=== PATIENT | male | born 1985 | race Caucasian/White ===

== ENCOUNTER → 2016-07-12 | Outpatient (REF) | payer OTHER ==
[2016-07-12 11:43] LABS: ALBUMIN 4.6 GM/DL (3.2-5.2); ALBUMIN/GLOBULIN RATIO 1.48 (1.00-1.93); ALKALINE PHOSPHATASE 104 U/L (45-117); ALT/SGPT 70 U/L (12-78); ANION GAP 8 MEQ/L (8-16); AST/SGOT 26 U/L (15-37); BILIRUBIN,TOTAL 0.5 MG/DL (0.2-1.0); BLOOD UREA NITROGEN 17 MG/DL (7-18); CALCIUM LEVEL 9.6 MG/DL (8.5-10.1); CARBON DIOXIDE LEVEL 28 MEQ/L (21-32); CHLORIDE LEVEL 106 MEQ/L (98-107); CHOLESTEROL LEVEL 282 MG/DL (<200); CREATININE FOR GFR 1.05 MG/DL (0.70-1.30); GLOMERULAR FILTRATION RATE > 60.0 (>60); GLUCOSE, FASTING 112 MG/DL (70-105); POTASSIUM SERUM 4.1 MEQ/L (3.5-5.1); SODIUM LEVEL 142 MEQ/L (136-145); TOTAL PROTEIN 7.7 GM/DL (6.4-8.2); TRIGLYCERIDES LEVEL 227 MG/DL (<150)
== END ==
LOC: M SFHCCLAY 09:00
PROVIDERS: ATTEND Family Medicine
DX: E78.2 Mixed hyperlipidemia (principal)

== ENCOUNTER → 2017-02-21 | Outpatient (REF) | payer OTHER ==
[2017-02-21 19:15] LABS: ALBUMIN 4.3 GM/DL (3.2-5.2); ALBUMIN/GLOBULIN RATIO 1.39 (1.00-1.93); ALKALINE PHOSPHATASE 99 U/L (45-117); ALT/SGPT 59 U/L (12-78); ANION GAP 4 MEQ/L (8-16); AST/SGOT 20 U/L (15-37); BILIRUBIN,TOTAL 0.5 MG/DL (0.2-1.0); BLOOD UREA NITROGEN 15 MG/DL (7-18); CALCIUM LEVEL 9.3 MG/DL (8.5-10.1); CARBON DIOXIDE LEVEL 32 MEQ/L (21-32); CHLORIDE LEVEL 104 MEQ/L (98-107); CHOLESTEROL LEVEL 280 MG/DL (<200); CREATININE FOR GFR 1.06 MG/DL (0.70-1.30); GLOMERULAR FILTRATION RATE > 60.0 (>60); GLUCOSE, FASTING 103 MG/DL (70-105); POTASSIUM SERUM 4.1 MEQ/L (3.5-5.1); SODIUM LEVEL 140 MEQ/L (136-145); TOTAL PROTEIN 7.4 GM/DL (6.4-8.2); TRIGLYCERIDES LEVEL 189 MG/DL (<150)
== END ==
LOC: M SFHCCLAY 09:41
PROVIDERS: ATTEND Family Medicine
DX: E78.2 Mixed hyperlipidemia (principal)

== ENCOUNTER → 2017-05-24 | Outpatient (CLI) | payer OTHER ==
--- NOTE | 2017-05-25 07:59 | REP ---
Left foot four views: There are findings at the fourth digit TM T articulation compatible with osteoarthritis versus compression fracture. There is superimposition on almost all images and the area is not optimally demonstrated on this plain film study. Correlation with clinical point tenderness is recommended. No other fracture is identified. No radiopaque foreign body. Mineralization joint spaces otherwise are unremarkable. I suspect there is soft tissue edema along the plantar surface in the location of the MTP articulations. This should be confirmed clinically. Impression: Questionable fracture versus osteoarthritis at the fourth digit TMT articulation. Signed by Hernan Hedrick MD 05/25/2017 07:51 A
== END ==
LOC: M CLY 11:50
PROVIDERS: ATTEND Nurse Practitioner Family
DX: S99.922A Unspecified injury of left foot, initial encounter (principal); X58.XXXA Exposure to other specified factors, initial encounter; Y92.89 Other specified places as the place of occurrence of the external cause; Y93.89 Activity, other specified; Y99.8 Other external cause status; R93.7 Abnormal findings on diagnostic imaging of other parts of musculoskeletal system

== ENCOUNTER → 2018-10-23 | Outpatient (CLI) | payer OTHER ==
--- NOTE | 2018-10-24 01:33 | REP ---
Clinical: Trauma. Technique: AP, lateral, bilateral oblique views right foot . Findings: The osseous structures and joint spaces are intact and normal. There is no evidence for acute fracture or dislocation. Surrounding soft tissues are unremarkable. No subcutaneous emphysema or radiodense foreign body. Impression: Normal right foot series. No acute fracture or dislocation.
== END ==
LOC: M CLY 12:12
PROVIDERS: ATTEND Nurse Practitioner Family
DX: S99.921A Unspecified injury of right foot, initial encounter (principal); X58.XXXA Exposure to other specified factors, initial encounter; Y92.89 Other specified places as the place of occurrence of the external cause

== ENCOUNTER → 2019-05-21 | Outpatient (REF) | payer OTHER ==
[2019-05-21 11:53] LABS: HEMATOCRIT 43.2 % (42.0-52.0); HEMOGLOBIN 14.5 g/dl (13.5-17.5); MEAN CORPUSCULAR HEMOGLOBIN 29.1 pg (27.0-33.0); MEAN CORPUSCULAR HGB CONC 33.6 g/dl (32.0-36.5); MEAN CORPUSCULAR VOLUME 86.6 fl (80.0-96.0); PLATELET COUNT, AUTOMATED 250 10^3/uL (150-450); RED BLOOD COUNT 4.99 10^6/uL (4.30-6.10); WHITE BLOOD COUNT 5.3 10^3/uL (4.0-10.0)
[2019-05-21 12:03] LABS: ALBUMIN 4.5 GM/DL (3.2-5.2); ALT/SGPT 98 U/L (12-78); BILIRUBIN,TOTAL 0.4 MG/DL (0.2-1.0); BLOOD UREA NITROGEN 18 MG/DL (7-18); CALCIUM LEVEL 9.5 MG/DL (8.5-10.1); CARBON DIOXIDE LEVEL 31 MEQ/L (21-32); CHLORIDE LEVEL 107 MEQ/L (98-107); CHOLESTEROL LEVEL 326 MG/DL (<200); CHOLESTEROL RISK RATIO 9.588 (<5); CREATININE FOR GFR 1.05 MG/DL (0.70-1.30); GLOMERULAR FILTRATION RATE > 60.0 (>60); GLUCOSE, FASTING 112 MG/DL (70-100); HDL CHOLESTEROL 34 MG/DL (>40); NON-HDL-C 292 MG/DL; POTASSIUM SERUM 4.5 MEQ/L (3.5-5.1); SODIUM LEVEL 142 MEQ/L (136-145); TOTAL PROTEIN 7.5 GM/DL (6.4-8.2); TRIGLYCERIDES LEVEL 676 MG/DL (<150)
[2019-05-21 12:07] LABS: TOTAL 25(OH) VITAMIN D 14.9 NG/ML (30.0-100.0)
== END ==
LOC: M SFHCCLAY 08:28
PROVIDERS: ATTEND Nurse Practitioner Family
DX: Z13.21 Encounter for screening for nutritional disorder (principal); E78.2 Mixed hyperlipidemia; E78.5 Hyperlipidemia, unspecified; G47.30 Sleep apnea, unspecified

== ENCOUNTER → 2019-08-19 | Outpatient (REF) | payer OTHER ==
[2019-08-19 11:42] LABS: ALBUMIN 4.3 GM/DL (3.2-5.2); ALT/SGPT 111 U/L (12-78); BILIRUBIN,DIRECT 0.1 MG/DL (0.0-0.2); BILIRUBIN,TOTAL 0.6 MG/DL (0.2-1.0); CHOLESTEROL LEVEL 263 MG/DL (<200); CHOLESTEROL RISK RATIO 9.392 (<5); HDL CHOLESTEROL 28 MG/DL (>40); NON-HDL-C 235 MG/DL; TOTAL PROTEIN 7.3 GM/DL (6.4-8.2); TRIGLYCERIDES LEVEL 567 MG/DL (<150)
[2019-08-19 11:50] LABS: TOTAL 25(OH) VITAMIN D 23.1 NG/ML (30.0-100.0)
== END ==
LOC: M SFHCCLAY 08:28
PROVIDERS: ATTEND Nurse Practitioner Family
DX: E78.5 Hyperlipidemia, unspecified (principal); E55.9 Vitamin D deficiency, unspecified

== ENCOUNTER → 2020-03-31 | Outpatient (REF) | payer BC, OTHER ==
[2020-03-31 13:01] LABS: ALBUMIN 4.5 GM/DL (3.2-5.2); ALT/SGPT 96 U/L (12-78); BILIRUBIN,DIRECT 0.1 MG/DL (0.0-0.2); BILIRUBIN,TOTAL 0.6 MG/DL (0.2-1.0); CHOLESTEROL LEVEL 243 MG/DL (<200); CHOLESTEROL RISK RATIO 5.785 (<5); HDL CHOLESTEROL 42 MG/DL (>40); LDL CHOLESTEROL 169 MG/DL (<100); NON-HDL-C 201 MG/DL; TOTAL PROTEIN 7.9 GM/DL (6.4-8.2); TRIGLYCERIDES LEVEL 162 MG/DL (<150)
[2020-03-31 13:05] LABS: TOTAL 25(OH) VITAMIN D 46.1 NG/ML (30.0-100.0)
[2020-04-01 08:58] LABS: HEPATITIS B SURFACE ANTIGEN NEGATIVE (NEGATIVE)
[2020-04-01 09:24] LABS: HEPATITIS B CORE ANTIBODY IGM NEGATIVE (NEGATIVE); HEPATITIS C VIRUS ABY INDEX 0.1 INDEX (<0.8)
[2020-04-01 09:28] LABS: HEPATITIS A ANTIBODY IGM NEGATIVE (NEGATIVE)
== END ==
LOC: M SFHCCLAY 08:25
PROVIDERS: ATTEND Nurse Practitioner Family
DX: E78.5 Hyperlipidemia, unspecified (principal); E55.9 Vitamin D deficiency, unspecified

== ENCOUNTER → 2020-04-01 | Outpatient (REF) | payer BC | LOC: M SFHCCLAY 08:07 | PROVIDERS: ATTEND Nurse Practitioner Family | DX: R94.5 Abnormal results of liver function studies (principal) ==

== ENCOUNTER → 2020-04-07 | Outpatient (CLI) | payer BC ==
--- NOTE | 2020-04-08 11:47 | REP ---
INDICATION: ABNORMAL LFT'S COMPARISON: None. TECHNIQUE: Real time osborne scale ultrasound examination using curved array transducer. FINDINGS: Liver demonstrates mildly increased echotexture suggesting fatty infiltration. No focal hepatic lesion identified. Focal fatty sparing noted adjacent to the gallbladder fossa. The pancreas is incompletely evaluated but visualized portions appear normal. The gallbladder is normal and without gallstones, wall thickening, or pericholecystic fluid. No biliary ductal dilatation is appreciated and the common bile duct measures 2.7 mm diameter. Right kidney is normal in reniform shape in appearance without hydronephrosis, and measures 12.3 x 4.7 x 4.5 cm. No ascites identified in the right upper quadrant. IMPRESSION: Hepatosteatosis. <Electronically signed by Brendon Rodriguez > 04/08/20 [id number]
== END ==
LOC: M RAD 08:39
PROVIDERS: ATTEND Nurse Practitioner Family
DX: R94.5 Abnormal results of liver function studies (principal)

== ENCOUNTER → 2020-05-14 | Outpatient (REF) | payer BC ==
[2020-05-14 11:53] LABS: BASO % 0.7 % (0.0-1.0); EOS # 0.2 10^3/uL (0.0-0.5); EOS % 3.3 % (0.0-3.0); HEMATOCRIT 44.5 % (42.0-52.0); HEMOGLOBIN 14.7 g/dl (13.5-17.5); LYMPH % 22.3 % (24.0-44.0); MEAN CORPUSCULAR HEMOGLOBIN 28.6 pg (27.0-33.0); MEAN CORPUSCULAR VOLUME 86.6 fl (80.0-96.0); MONO # 0.7 10^3/uL (0.0-0.8); MONO % 16.2 % (0.0-5.0); NEUTROPHILS # 2.6 10^3/uL (1.5-8.5); NEUTROPHILS % 57.1 % (36.0-66.0); PLATELET COUNT, AUTOMATED 238 10^3/uL (150-450); RED BLOOD COUNT 5.14 10^6/uL (4.30-6.10); WHITE BLOOD COUNT 4.5 10^3/uL (4.0-10.0)
[2020-05-14 12:25] LABS: C REACTIVE PROTEIN QUANTITATIV < 0.30 MG/DL (0.00-0.30); RHEUMATOID FACTOR QUANT < 10.0 IU/ML (<15.0); URIC ACID 9.5 MG/DL (3.5-7.2)
[2020-05-14 12:35] LABS: ERYTHROCYTE SEDIMENTATION RATE 3 mm/hr (0-15)
[2020-05-15 16:07] LABS: ANTINUCLEAR ANTIBODIES DIRECT Negative (Negative); Lyme Disease IgG/IgM Antibodie <0.91 ISR (0.00-0.90); Lyme Disease IgM Ab Quantitati <0.80 index (0.00-0.79)
== END ==
LOC: M LABDRAWC 11:09
PROVIDERS: ATTEND Physician Assistant Surgical
DX: M25.572 Pain in left ankle and joints of left foot (principal)

== ENCOUNTER → 2020-07-29 | Outpatient (REF) | payer BC ==
[2020-07-29 12:31] LABS: HEMATOCRIT 45.7 % (42.0-52.0); HEMOGLOBIN 15.2 g/dl (13.5-17.5); MEAN CORPUSCULAR HGB CONC 33.3 g/dl (32.0-36.5); MEAN CORPUSCULAR VOLUME 87.2 fl (80.0-96.0); PLATELET COUNT, AUTOMATED 272 10^3/uL (150-450); RED BLOOD COUNT 5.24 10^6/uL (4.30-6.10); WHITE BLOOD COUNT 4.8 10^3/uL (4.0-10.0)
[2020-07-29 12:58] LABS: ALBUMIN 4.6 GM/DL (3.2-5.2); ALT/SGPT 131 U/L (12-78); BILIRUBIN,TOTAL 0.8 MG/DL (0.2-1.0); BLOOD UREA NITROGEN 16 MG/DL (7-18); CARBON DIOXIDE LEVEL 28 MEQ/L (21-32); CHLORIDE LEVEL 105 MEQ/L (98-107); CHOLESTEROL LEVEL 212 MG/DL (<200); CHOLESTEROL RISK RATIO 5.578 (<5); CREATININE FOR GFR 1.14 MG/DL (0.70-1.30); GLOMERULAR FILTRATION RATE > 60.0 (>60); GLUCOSE, FASTING 105 MG/DL (70-100); HDL CHOLESTEROL 38 MG/DL (>40); LDL CHOLESTEROL 138 MG/DL (<100); NON-HDL-C 174 MG/DL; POTASSIUM SERUM 4.6 MEQ/L (3.5-5.1); SODIUM LEVEL 140 MEQ/L (136-145); TOTAL PROTEIN 7.7 GM/DL (6.4-8.2); TRIGLYCERIDES LEVEL 179 MG/DL (<150)
[2020-07-29 13:06] LABS: TOTAL 25(OH) VITAMIN D 36.2 NG/ML (30.0-100.0)
== END ==
LOC: M SFHCCLAY 07:04
PROVIDERS: ATTEND Nurse Practitioner Family
DX: R94.5 Abnormal results of liver function studies (principal); E78.5 Hyperlipidemia, unspecified; R73.9 Hyperglycemia, unspecified; E55.9 Vitamin D deficiency, unspecified

== ENCOUNTER → 2020-08-30 | Outpatient (CLI) | payer BC ==
--- NOTE | 2020-08-30 19:20 | ECGEPIP ---
[facility] Test Date: 2020-08-30 Pat Name: MEEK JACOBO Department: Room: - Gender: Male [employer]: rf : 1985 Requested By: Janak Garcia Order Number: [id number] Reading MD: Duncan Shoemaker Measurements Intervals Wray Rate: 61 P: 39 WI: 134 QRS: 39 QRSD: 98 T: 38 QT: 398 QTc: 400 Interpretive Statements Normal sinus rhythm Incomplete right bundle branch block Comparison tracing not on file Electronically Signed on 08-30-2020 19:20:08 EDT by Duncan Shoemaker
== END ==
LOC: M EKG 12:52
PROVIDERS: ATTEND Orthopaedic Surgery
DX: Z01.818 Encounter for other preprocedural examination (principal); S92.342K Displaced fracture of fourth metatarsal bone, left foot, subsequent encounter for fracture with nonunion; X58.XXXA Exposure to other specified factors, initial encounter; Y92.89 Other specified places as the place of occurrence of the external cause; Y93.89 Activity, other specified; Y99.8 Other external cause status; I45.0 Right fascicular block; R93.41 Abnormal radiologic findings on diagnostic imaging of renal pelvis, ureter, or bladder

== ENCOUNTER 2020-12-10 12:46 | Inpatient (IN) | payer BC ==
[~2020-12-10] VITALS: Ht 180.3 cm; Wt 107.5 kg
[2020-12-10] MEDS: NS 1,000 ML IV SCH ×2 (02:30→18:53)
[2020-12-10 14:50] VITALS: BP 120/78
[2020-12-10] MEDS ORDERED: KETOROLAC 30 MG/ML 1ML VIAL IV PRN (15:05)
[2020-12-10] MEDS ORDERED: MORPHINE 4 MG/ML 1ML VIAL/SYRINGE (J2270) IV PRN (15:15)
[2020-12-10] MEDS ORDERED: ATOR1TAB21 PO (16:29)
[2020-12-10] MEDS ORDERED: ERGO500029 PO (16:29)
[2020-12-10] MEDS ORDERED: ONDANSETRON 4MG/2ML VIAL IV PRN (16:30)
--- NOTE | 2020-12-10 16:31 | HPEPDOC ---
[facility] Medical History & Physical Date of Admission Dec 10, 2020 Date of Service: Dec 10, 2020 Attending Physician: KENNETH MUHAMMAD MD History and Physical CHIEF COMPLAINT: Abdominal pain, worse in LLQ HISTORY OF PRESENT ILLNESS: 35 yo M with a history of HTN and HLD not on medications, and former smoker who presented to [facility] this morning with worsening LLQ abdominal pain that begin yesterday morning but progressed into sharp LLQ that is worse with movement with poor PO and associated fevers last noted was 101.9. He denies nausea, emesis, diarrhea, melena, hematochezia or prior history of such pain before. He consumes alcohol daily but 1 glass and recently had been smoking marijuana since yesterday for this pain but otherwise does not use any other illicit drugs. At [place] he was hemodynamically stable adn has been afebrile thus far since his last acetaminophen he took at home. Investigations included a CT A/P with IV contrast that revealed severe thickening of the distal descending colon with a small pocket of air within the mesentary posteriorly without significant diverticular c/w a focal colitis with a small loculated microperforation. He had a leukocytosis to WBC 14.1, Hgb 15.4, platelets 215, na 136, K 4, Cr 1.11, glucose 106, lipase 56, lactate 0.8, ASt 16, ALT 57, alk phos 97, Tbili 2.1 and covid-19 testing was negative. He was given 2L of NS, morphine, zofran and zosyn and transferred to [facility] for focal colitis with microperforation. On arrival he does not appear uncomfortable and is asking for water. He does report that he had severe pain with movement especially with all the bumps and swaying in the ambulance on the way here. I consulted surgery and he will be seen shortly and will otherwise start him on empiric zosyn and fluids and place him on clear liquids. PAST MEDICAL HISTORY: HTN and HLD PAST SURGICAL HISTORY: Knee and foot surgery SOCIAL HISTORY: Tobacco use: prior ETOH: daily, 1 drink daily Illicit drug use: marijuana FAMILY HISTORY: Father: HTN Mother: Cancer maternal grandmother: DM ALLERGIES: Please see below. REVIEW OF SYSTEMS: 10 point ROS was completed and was negative except as noted in the HPI. HOME MEDICATIONS: Please see below. PHYSICAL EXAMINATION: VITAL SIGNS: see below GENERAL APPEARANCE: NAD, well developed, well nourished HEENT: NCAT, PERRLA, EOMI, MMM CARDIOVASCULAR: RRR, has a murmur, no JVD LUNGS: CTAB ABDOMEN: Exquisite LLQ>RLQ pain, hypoactive sounds MUSCULOSKELETAL: 5/5 strength with FROM EXTREMITIES: WWP, no LE edema NEUROLOGICAL: AOx3, clear speech, CN3-12 intact, grossly nonfocal LABORATORY DATA and IMAGING: [place] labs and imaging summarized above. MICROBIOLOGY: Please see below. ASSESSMENT: 35 yo M with a history of HTN and HLD not on medications, and former smoker who presented to [facility] this morning with worsening LLQ abdominal pain that begin yesterday morning but progressed into sharp LLQ that is worse with movement with poor PO and associated fevers now transferred to [facility] with distal focal colitis with a small loculated microperforation. PLAN: Focal descending colitis with microperforation -Surgery consulted -NPO -zosyn [id number] -morphine 4mg IV Q6HP for severe pain -acetaminophen PRn for fevers -zofran 4mg IV Q6HP -sent [place] CT disc to radiology for uploading into PACS -NS @ 125cc/hr HTN: -normotensive, monitor HLD: recently not taking his statin therapy -check lipid profile with AM labs DVT ppx: TEDs and SCDs Allergies Coded Allergies: No Known Allergies (Unverified , 06/14/20) A-FIB/CHADSVASC A-FIB History Current/History of A-Fib/PAF?: No Current PO Anticoag Therapy: No Age/Risk Factor Scoring CHADSVASC: CHADSVASC Response (Comments) Value Age Risk Factor Age < 65 years old 0 Gender Risk Factor Male 0 Hx of CHF No 0 Hx of HTN Yes 1 Hx of Stroke/TIA/or VTE No 0 Hx of Diabetes No 0 Hx of Vascular Disease No 0 Total 1 Treatment Treatment ordered: NONE Reason Anticoagulant not given: Not indicated/[id number] KENNETH MUHAMMAD MD Dec 10, 2020 16:30
[2020-12-10 17:32] LABS: HEMATOCRIT 41.9 % (42.0-52.0); HEMOGLOBIN 13.9 g/dl (13.5-17.5); MEAN CORPUSCULAR HEMOGLOBIN 29.3 pg (27.0-33.0); MEAN CORPUSCULAR HGB CONC 33.2 g/dl (32.0-36.5); MEAN CORPUSCULAR VOLUME 88.4 fl (80.0-96.0); PLATELET COUNT, AUTOMATED 182 10^3/uL (150-450); RED BLOOD COUNT 4.74 10^6/uL (4.30-6.10); WHITE BLOOD COUNT 12.5 10^3/uL (4.0-10.0)
[2020-12-10 18:00] LABS: ALBUMIN 3.7 GM/DL (3.2-5.2); ALT/SGPT 44 U/L (12-78); BILIRUBIN,TOTAL 2.1 MG/DL (0.2-1.0); BLOOD UREA NITROGEN 10 MG/DL (7-18); CALCIUM LEVEL 8.7 MG/DL (8.5-10.1); CARBON DIOXIDE LEVEL 26 MEQ/L (21-32); CHLORIDE LEVEL 103 MEQ/L (98-107); CREATININE FOR GFR 1.15 MG/DL (0.70-1.30); GLOMERULAR FILTRATION RATE > 60.0 (>60); GLUCOSE, FASTING 112 MG/DL (70-100); POTASSIUM SERUM 3.9 MEQ/L (3.5-5.1); SODIUM LEVEL 139 MEQ/L (136-145); TOTAL PROTEIN 7.1 GM/DL (6.4-8.2)
[2020-12-10] MEDS: PIPERACILLIN/TAZOBACTAM SOD 3.375 GM in D5W MINI-BAG PLUS 50 ML IV SCH (18:53)
[2020-12-10 22:00] VITALS: BP 125/63
[2020-12-10] MEDS: ACETAMINOPHEN TAB 650MG DOSE (2X325MG) PO PRN (23:23)
[2020-12-11] MEDS: PIPERACILLIN/TAZOBACTAM SOD 3.375 GM in D5W MINI-BAG PLUS 50 ML IV SCH ×5 (00:33→23:59)
[2020-12-11 06:00] VITALS: BP 127/63
[2020-12-11 06:16] LABS: HEMATOCRIT 39.6 % (42.0-52.0); HEMOGLOBIN 13.6 g/dl (13.5-17.5); MEAN CORPUSCULAR HEMOGLOBIN 30.2 pg (27.0-33.0); MEAN CORPUSCULAR HGB CONC 34.3 g/dl (32.0-36.5); MEAN CORPUSCULAR VOLUME 87.8 fl (80.0-96.0); PLATELET COUNT, AUTOMATED 196 10^3/uL (150-450); RED BLOOD COUNT 4.51 10^6/uL (4.30-6.10); WHITE BLOOD COUNT 12.5 10^3/uL (4.0-10.0)
[2020-12-11 06:39] LABS: BLOOD UREA NITROGEN 10 MG/DL (7-18); CALCIUM LEVEL 8.7 MG/DL (8.5-10.1); CARBON DIOXIDE LEVEL 25 MEQ/L (21-32); CHLORIDE LEVEL 103 MEQ/L (98-107); CREATININE FOR GFR 1.07 MG/DL (0.70-1.30); GLOMERULAR FILTRATION RATE > 60.0 (>60); GLUCOSE, FASTING 97 MG/DL (70-100); MAGNESIUM LEVEL 1.9 MG/DL (1.8-2.4); POTASSIUM SERUM 3.8 MEQ/L (3.5-5.1); SODIUM LEVEL 137 MEQ/L (136-145)
[2020-12-11] MEDS: NS 1,000 ML IV SCH ×2 (10:11→18:57)
[2020-12-11] MEDS: ACETAMINOPHEN TAB 650MG DOSE (2X325MG) PO PRN ×2 (10:11→18:59)
--- NOTE | 2020-12-11 11:12 | IPNPDOC ---
Date Seen The patient was seen on 12/11/20. Progress Note SUBJECTIVE: Patient was seen and examined at bedside. Appears nontoxic. Alert, oriented in bed talking. Since his pain is in the abdomen is improving. He denies any fevers and chills overnight. Was seen by Dr. Miles. Trialed CLD for breakfast, tolerated well. OBJECTIVE PHYSICAL EXAMINATION: VITAL SIGNS: please see below General: NAD, comfortable HEENT: PERRLA, EOMI, sclerae clear Neck: supple, normal ROM, no JVD Respiratory: lungs CTAB, no wheeze, no rales, no crackles CVS: RRR, normal S1, S2, no murmurs Abdo: pain to palpation of LLQ. Soft, no rigidity. Extremities: no edema, pulses 2+ MSK: no joint deformities, normal ROM Neuro: no focal neuro deficits, moving all 4 extremities, CN2-12 intact. Strength 5/5 in all 4 extremities. No nystagmus. Psych: calm, cooperative, AAO x 3 LABORATORY DATA, IMAGING STUDIES, MICROBIOLOGY: Please see below. DVT prophylaxis ordered?: TEDs. SCDs. ASSESSMENT AND PLAN: 35-year-old male with past medical history of hypertension, hyperlipidemia, transferred from [facility] with concern for focal ascending colitis with microperforation. Complaint of left lower quadrant abdominal pain, now improving. Being evaluated by general surgery, Dr. Mlies. Presently on Zosyn. Diet advanced to CLD by Dr. Miles. PROBLEMS: Focal descending colitis with microperforation -Surgery consulted, being followed by Dr. Miles. -diet advanced to CLD by surgery -plan to advance diet to low fiber pending improvement in pain -c/w zosyn [id number] -morphine 4mg IV Q6HP for severe pain -acetaminophen PRn for fevers -zofran 4mg IV Q6HP - will c/w NS 125 cc/hr until diet advanced further HTN: - BP normotensive - monitor and titrate HLD - not on medication - lipid panel not drawn, ordered labs for 12/12/20 DVT ppx: TEDs and SCDs VS, I&O, 24H, Fishbone Vital Signs/I&O Vital Signs Date Time Temp Pulse Resp B/P (MAP) Pulse Ox O2 Delivery O2 Flow Rate FiO2 12/11/20 06:00 98.2 92 21 127/63 (84) 96 Room Air I&O- Last 24 Hours up to 6 AM 12/11/20 06:00 Intake Total 2125 ml Output Total 200 ml Balance 1925 ml Laboratory Data 24H LABS Laboratory Tests 2 12/10/20 17:15: Nucleated Red Blood Cells % (auto) 0.0, Anion Gap 10, Glomerular Filtration Rate > 60.0, Lactic Acid Level 1.3, Calcium Level 8.7, Total Bilirubin 2.1H, Aspartate Amino Transf (AST/SGOT) 12, Alanine Aminotransferase (ALT/SGPT) 44, Alkaline Phosphatase 89, Total Protein 7.1, Albumin 3.7, Albumin/Globulin Ratio 1.1 12/11/20 06:00: Nucleated Red Blood Cells % (auto) 0.0, Anion Gap 9, Glomerular Filtration Rate > 60.0, Calcium Level 8.7, Magnesium Level 1.9 CBC/BMP Laboratory Tests 12/10/20 17:15 12/11/20 06:00 Microbiology Microbiology 12/10/20 Blood Culture, Received Pending 12/10/20 Blood Culture, Received Pending CODY ARIAS MD Dec 11, 2020 11:12
[2020-12-11 14:00] VITALS: BP 120/79
[2020-12-11 22:00] VITALS: BP 130/62
[2020-12-12 06:00] VITALS: BP 124/60
[2020-12-12] MEDS: PIPERACILLIN/TAZOBACTAM SOD 3.375 GM in D5W MINI-BAG PLUS 50 ML IV SCH ×3 (06:11→18:27)
[2020-12-12 06:33] LABS: HEMATOCRIT 39.5 % (42.0-52.0); HEMOGLOBIN 13.3 g/dl (13.5-17.5); MEAN CORPUSCULAR HEMOGLOBIN 29.3 pg (27.0-33.0); MEAN CORPUSCULAR HGB CONC 33.7 g/dl (32.0-36.5); PLATELET COUNT, AUTOMATED 198 10^3/uL (150-450); RED BLOOD COUNT 4.54 10^6/uL (4.30-6.10); WHITE BLOOD COUNT 9.9 10^3/uL (4.0-10.0)
[2020-12-12 07:05] LABS: BLOOD UREA NITROGEN 7 MG/DL (7-18); CALCIUM LEVEL 8.3 MG/DL (8.5-10.1); CARBON DIOXIDE LEVEL 24 MEQ/L (21-32); CHLORIDE LEVEL 106 MEQ/L (98-107); CHOLESTEROL LEVEL 230 MG/DL (<200); CHOLESTEROL RISK RATIO 9.583 (<5); GLOMERULAR FILTRATION RATE > 60.0 (>60); GLUCOSE, FASTING 110 MG/DL (70-100); HDL CHOLESTEROL 24 MG/DL (>40); LDL CHOLESTEROL 170 MG/DL (<100); NON-HDL-C 206 MG/DL; POTASSIUM SERUM 3.8 MEQ/L (3.5-5.1); SODIUM LEVEL 136 MEQ/L (136-145); TRIGLYCERIDES LEVEL 179 MG/DL (<150)
--- NOTE | 2020-12-12 08:42 | IPNPDOC ---
Text Note Date of Service The patient was seen on 12/12/20. NOTE No acute events overnight. He is tolerating diet without any nausea. Abd pain is much improved. VSSAF NAD abd - soft, ND, TTP LLQ without any rebound or guarding labs - below A) 35y/o male with colitis with microperforation possibly due to diverticulitis P) reg low fiber diet ambulate plan on d/c home in am with PO abx if continuing to improve. outpatient colonoscopy in 6 weeks. Gino Miles DO VS,Leopoldo, I+O VS, Fishbone, I+O Laboratory Tests 12/12/20 05:24 12/12/20 05:25 Vital Signs Date Time Temp Pulse Resp B/P (MAP) Pulse Ox O2 Delivery O2 Flow Rate FiO2 12/12/20 06:00 97.9 85 20 124/60 (81) 99 Room Air I&O- Last 24 Hours up to 6 AM 12/12/20 06:00 Intake Total 3320 ml Output Total 0 ml Balance 3320 ml MORGAN MILES DO Dec 12, 2020 08:42
[2020-12-12] MEDS: NS 1,000 ML IV SCH ×2 (08:47)
--- NOTE | 2020-12-12 11:22 | IPNPDOC ---
Date Seen The patient was seen on 12/12/20. Progress Note SUBJECTIVE: Patient was seen and examined at bedside. Appears nontoxic. Alert, oriented in bed talking. Tolerating low fiber diet well. Abdo pain in LLQ persists but much improved. OBJECTIVE PHYSICAL EXAMINATION: VITAL SIGNS: please see below General: NAD, comfortable HEENT: PERRLA, EOMI, sclerae clear Neck: supple, normal ROM, no JVD Respiratory: lungs CTAB, no wheeze, no rales, no crackles CVS: RRR, normal S1, S2, no murmurs Abdo: pain to palpation of LLQ. Soft, no rigidity. Extremities: no edema, pulses 2+ MSK: no joint deformities, normal ROM Neuro: no focal neuro deficits, moving all 4 extremities, CN2-12 intact. Strength 5/5 in all 4 extremities. No nystagmus. Psych: calm, cooperative, AAO x 3 LABORATORY DATA, IMAGING STUDIES, MICROBIOLOGY: Please see below. DVT prophylaxis ordered?: TEDs. SCDs. ASSESSMENT AND PLAN: 35-year-old male with past medical history of hypertension, hyperlipidemia, transferred from [facility] with concern for focal ascending colitis with microperforation. Complaint of left lower quadrant abdominal pain, now improving. Being evaluated by general surgery, Dr. Miles. Presently on Zosyn. Diet advanced to CLD by Dr. Miles. PROBLEMS: Focal descending colitis with microperforation -Surgery consulted, being followed by Dr. Miles. -advanced to low fiber diet, tolerating well -DC IVF as is tolerating low fiber diet. -c/w zosyn [id number] -morphine 4mg IV Q6HP for severe pain -acetaminophen PRN for fevers -zofran 4mg IV Q6HP HTN: - BP normotensive - monitor and titrate HLD - not on medication - LDL 170 - lifestyle changes encouraged DVT ppx: TEDs and SCDs VS, I&O, 24H, Fishbone Vital Signs/I&O Vital Signs Date Time Temp Pulse Resp B/P (MAP) Pulse Ox O2 Delivery O2 Flow Rate FiO2 12/12/20 06:00 97.9 85 20 124/60 (81) 99 Room Air I&O- Last 24 Hours up to 6 AM 12/12/20 06:00 Intake Total 3320 ml Output Total 0 ml Balance 3320 ml Laboratory Data 24H LABS Laboratory Tests 2 12/12/20 05:24: Nucleated Red Blood Cells % (auto) 0.0 12/12/20 05:25: Anion Gap 6L, Glomerular Filtration Rate > 60.0, Calcium Level 8.3L, Triglycerides Level 179H, Total Cholesterol 230H, LDL Cholesterol 170H, Non-HDL Cholesterol (LDL + VLDL) 206, Total HDL Cholesterol 24L, Cholesterol/HDL Ratio 9.583H CBC/BMP Laboratory Tests 12/12/20 05:24 12/12/20 05:25 Microbiology Microbiology 12/10/20 Blood Culture - Preliminary, Resulted No growth after 24 hours . All specim... 12/10/20 Blood Culture - Preliminary, Resulted No growth after 24 hours . All specim... CODY ARIAS MD Dec 12, 2020 11:22
[2020-12-12 14:00] VITALS: BP 122/79
[2020-12-12 22:00] VITALS: BP 131/81
[2020-12-13] MEDS: PIPERACILLIN/TAZOBACTAM SOD 3.375 GM in D5W MINI-BAG PLUS 50 ML IV SCH ×2 (00:24→06:22)
[2020-12-13 06:00] VITALS: BP 131/84
[2020-12-13 06:32] LABS: HEMATOCRIT 40.4 % (42.0-52.0); HEMOGLOBIN 13.3 g/dl (13.5-17.5); MEAN CORPUSCULAR HGB CONC 32.9 g/dl (32.0-36.5); MEAN CORPUSCULAR VOLUME 88.2 fl (80.0-96.0); PLATELET COUNT, AUTOMATED 253 10^3/uL (150-450); RED BLOOD COUNT 4.58 10^6/uL (4.30-6.10); WHITE BLOOD COUNT 6.7 10^3/uL (4.0-10.0)
[2020-12-13 07:01] LABS: BLOOD UREA NITROGEN 8 MG/DL (7-18); CALCIUM LEVEL 9.1 MG/DL (8.5-10.1); CARBON DIOXIDE LEVEL 29 MEQ/L (21-32); CHLORIDE LEVEL 106 MEQ/L (98-107); GLOMERULAR FILTRATION RATE > 60.0 (>60); GLUCOSE, FASTING 97 MG/DL (70-100); POTASSIUM SERUM 4.8 MEQ/L (3.5-5.1); SODIUM LEVEL 139 MEQ/L (136-145)
--- NOTE | 2020-12-13 08:55 | IPNPDOC ---
Text Note Date of Service The patient was seen on 12/13/20. NOTE No acute events overnight. He is tolerating reg diet without any nausea. Abd p ain is much improved again today. VSSAF NAD abd - soft, ND, less tender LLQ without any rebound or guarding labs - below A) 35y/o male with colitis with microperforation possibly due to diverticulitis P) reg low fiber diet ambulate plan on d/c home today with PO abx f/u in office in 2 weeks outpatient colonoscopy in 6 weeks. Gino Miles DO VS,Fishbone, I+O VS, Fishbone, I+O Laboratory Tests 12/13/20 06:02 Vital Signs Date Time Temp Pulse Resp B/P (MAP) Pulse Ox O2 Delivery O2 Flow Rate FiO2 12/13/20 06:00 96.4 79 19 131/84 (100) 100 Room Air I&O- Last 24 Hours up to 6 AM 12/13/20 06:00 Intake Total 1555 ml Output Total 0 ml Balance 1555 ml MORGAN MILES DO Dec 13, 2020 08:55
--- NOTE | 2020-12-13 11:06 | DS.PDOC ---
Discharge Summary General Date of Admission Dec 10, 2020 at 15:18 Date of Discharge 12/13/20 Discharge Summary PROCEDURES PERFORMED DURING STAY: [None]. ADMITTING DIAGNOSES: 1. . DISCHARGE DIAGNOSES: 1. . COMPLICATIONS/CHIEF COMPLAINT: Diverticulitis With Mircro Perforation. HISTORY OF PRESENT ILLNESS: . HOSPITAL COURSE: . DISCHARGE MEDICATIONS: Please see below. ALLERGIES: Please see below. PHYSICAL EXAMINATION ON DISCHARGE: VITAL SIGNS: Please see below. GENERAL: HEENT: NECK: CARDIOVASCULAR EXAMINATION: RESPIRATORY EXAMINATION: ABDOMINAL EXAMINATION: EXTREMITIES: SKIN: NEUROLOGICAL EXAMINATION: PSYCHIATRIC EXAMINATION: LABORATORY DATA: Please see below. IMAGING: PROGNOSIS: ACTIVITY: [As tolerated]. DIET: DISCHARGE PLAN: DISPOSITION: . DISCHARGE INSTRUCTIONS: 1. . ITEMS TO FOLLOWUP ON ON OUTPATIENT: 1. . DISCHARGE CONDITION: [Stable]. TIME SPENT ON DISCHARGE: Greater than minutes. Vital Signs/I&Os Vital Signs Date Time Temp Pulse Resp B/P (MAP) Pulse Ox O2 Delivery O2 Flow Rate FiO2 12/13/20 06:00 96.4 79 19 131/84 (100) 100 Room Air I&O- Last 24 Hours up to 6 AM 12/13/20 05:59 Intake Total 2230 ml Output Total 0 ml Balance 2230 ml Laboratory Data Labs 24H Laboratory Tests 2 12/13/20 06:02: Nucleated Red Blood Cells % (auto) 0.0, Anion Gap 4L, Glomerular Filtration Rate > 60.0, Calcium Level 9.1 CBC/BMP Laboratory Tests 12/13/20 06:02 Microbiology Microbiology 12/10/20 Blood Culture - Preliminary, Resulted No Growth after 48 hours. All Specime... 12/10/20 Blood Culture - Preliminary, Resulted No Growth after 48 hours. All Specime... Discharge Medications Scheduled Atorvastatin Calcium (Atorvastatin Calcium) 20 Mg Tablet, 20 MG PO QHS, (Reported) Ergocalciferol (Vitamin D2) (Vitamin D2) 50,000 Units Cap, 50,000 UNITS PO 1XWK, (Reported) SUNDAYS Allergies Coded Allergies: No Known Allergies (Unverified , 06/14/20) CODY ARIAS MD Dec 13, 2020 11:06
[2020-12-13] MEDS ORDERED: METR-265 PO (11:17)
[2020-12-13] MEDS ORDERED: ACET1TAB55 PO (11:17)
[2020-12-13] MEDS ORDERED: CIPR250T3 PO (11:17)
== END 2020-12-13 12:14 | disposition home or self-care (01) | DRG 244 ==
LOC: M MSPAV 15:18
PROVIDERS: ADMIT Internal Medicine; ATTEND Family Medicine
DX: K57.20 Diverticulitis of large intestine with perforation and abscess without bleeding (principal); I10 Essential (primary) hypertension; E78.5 Hyperlipidemia, unspecified; Z87.891 Personal history of nicotine dependence; F10.10 Alcohol abuse, uncomplicated; F12.10 Cannabis abuse, uncomplicated; Z79.899 Other long term (current) drug therapy

== ENCOUNTER 2022-05-15 15:09 | Emergency (ER) | payer BC, OTHER ==
[~2022-05-15] VITALS: Ht 180.3 cm; Wt 93.2 kg
[~2022-05-15 15:09] MED LIST: ACET1TAB55 PO; ATOR1TAB21 PO; CIPR250T3 PO; ERGO500029 PO; METR-265 PO
[2022-05-15] MEDS ORDERED: KETOROLAC 30 MG/ML 1ML VIAL IV ONE (19:10)
[2022-05-15] MEDS ORDERED: NS 1,000 ML IV ONE (19:10)
[2022-05-15] MEDS ORDERED: ONDANSETRON 4MG 2ML VIAL IV ONE (19:10)
[2022-05-15 20:14] LABS: BASO % 0.2 % (0.0-1.0); EOS # 0.1 10^3/uL (0.0-0.5); EOS % 0.4 % (0.0-3.0); HEMATOCRIT 44.4 % (42.0-52.0); HEMOGLOBIN 14.8 g/dl (13.5-17.5); LYMPH # 0.5 10^3/uL (1.5-5.0); LYMPH % 3.5 % (24.0-44.0); MEAN CORPUSCULAR HEMOGLOBIN 29.9 pg (27.0-33.0); MEAN CORPUSCULAR HGB CONC 33.3 g/dl (32.0-36.5); MEAN CORPUSCULAR VOLUME 89.7 fl (80.0-96.0); MONO % 7.1 % (2.0-8.0); NEUTROPHILS # 12.3 10^3/uL (1.5-8.5); NEUTROPHILS % 88.4 % (36.0-66.0); PLATELET COUNT, AUTOMATED 211 10^3/uL (150-450); RED BLOOD COUNT 4.95 10^6/uL (4.30-6.10); WHITE BLOOD COUNT 13.9 10^3/uL (4.0-10.0)
[2022-05-15] MEDS ORDERED: ISOVUE-370 76% 100ML VIAL As Ordered ONE (20:16)
[2022-05-15 20:40] LABS: ALBUMIN 4.6 G/DL (3.2-5.2); BILIRUBIN,DIRECT 0.3 MG/DL (<0.4); BILIRUBIN,TOTAL 1.2 MG/DL (0.3-1.2); TOTAL PROTEIN 7.5 G/DL (5.7-8.2)
[2022-05-15] MEDS ORDERED: CIPROFLOXACIN 500MG TABLET PO ONE (21:10)
[2022-05-15] MEDS ORDERED: metroNIDAZOLE (FLAGYL) 500MG TABLET PO ONE (21:10)
[2022-05-15] MEDS ORDERED: CIPR-249 PO (21:17)
[2022-05-15] MEDS ORDERED: METR-265 PO (21:17)
[2022-05-15] MEDS ORDERED: ONDA4TAB6 PO (21:17)
[2022-05-15 21:43] VITALS: BP 140/72
[2022-05-15] MEDS ORDERED: ACETAMINOPHEN 500 MG TAB PO ONE (21:45)
== END 2022-05-15 21:48 | disposition home or self-care (01) ==
LOC: M ED 15:09
DX: K57.32 Diverticulitis of large intestine without perforation or abscess without bleeding (principal); I10 Essential (primary) hypertension; F12.10 Cannabis abuse, uncomplicated; Z79.899 Other long term (current) drug therapy
CPT/HCPCS: 74018; 74177; 80047; 80076; 83605; 83690; 85025; 96374; 99284; J1885; J2405

== ENCOUNTER → 2022-10-04 | Outpatient (REF) | payer OTHER ==
[~2022-10-04] MED LIST changes: +CIPR-249 PO; +ONDA4TAB6 PO
[2022-10-04 12:37] LABS: ALBUMIN 4.4 G/DL (3.2-5.2); ALKALINE PHOSPHATASE 89 U/L (46-116); ALT/SGPT 48 U/L (7.0-40); AST/SGOT 26 U/L (<34); BILIRUBIN,DIRECT 0.2 MG/DL (<0.4); BILIRUBIN,TOTAL 0.8 MG/DL (0.3-1.2); IMMUNOGLOBULIN A 176.6 MG/DL (40-350); IRON (FE) 87 UG/DL (65-175); PERCENT SATURATION 23.8 % (19.7-50.0); TOTAL IRON BINDING CAPACITY 366 UG/DL (250-425); TOTAL PROTEIN 7.2 G/DL (5.7-8.2)
[2022-10-04 12:49] LABS: HEPATITIS B SURFACE ANTIGEN NEGATIVE (NEGATIVE)
[2022-10-04 13:11] LABS: HEPATITIS B CORE ANTIBODY IGM NEGATIVE (NEGATIVE)
[2022-10-06 16:09] LABS: ANCA-ATYPICAL <1:20 titer (Neg:<1:20); ANTI-MITOCHONDRIAL ANTIBODY <20.0 Units (0.0-20.0); ANTINUCLEAR ANTIBODIES DIRECT Negative (Negative); CERULOPLASMIN 23.8 mg/dL (16.0-31.0); CYTOPLASMIC NEUTROP AB ANCA-C <1:20 titer (Neg:<1:20); LIVER-KIDNEY MICROSOMAL ABY <20.1 Units (0.0-20.0); PERINUCLEAR AB ANCA-P <1:20 titer (Neg:<1:20); TISSUE TRANSGLUTAMINASE IgA <2 U/mL (0-3)
== END ==
LOC: M LABDRAWC 11:17
PROVIDERS: ATTEND Internal Medicine Gastroenterology
DX: R19.7 Diarrhea, unspecified (principal); Z71.41 Alcohol abuse counseling and surveillance of alcoholic; E78.2 Mixed hyperlipidemia

== ENCOUNTER → 2022-10-04 | Outpatient (REF) | payer OTHER ==
[2022-10-04 12:05] LABS: HEMATOCRIT 44.7 % (42.0-52.0); HEMOGLOBIN 14.9 g/dl (13.5-17.5); MEAN CORPUSCULAR HEMOGLOBIN 29.7 pg (27.0-33.0); MEAN CORPUSCULAR HGB CONC 33.3 g/dl (32.0-36.5); MEAN CORPUSCULAR VOLUME 89.2 fl (80.0-96.0); PLATELET COUNT, AUTOMATED 228 10^3/uL (150-450); RED BLOOD COUNT 5.01 10^6/uL (4.30-6.10); WHITE BLOOD COUNT 3.7 10^3/uL (4.0-10.0)
[2022-10-04 12:39] LABS: ALBUMIN 4.5 G/DL (3.2-5.2); ALKALINE PHOSPHATASE 87 U/L (46-116); ALT/SGPT 46 U/L (7.0-40); AST/SGOT 28 U/L (<34); BILIRUBIN,TOTAL 0.8 MG/DL (0.3-1.2); BLOOD UREA NITROGEN 19 MG/DL (9-23); CARBON DIOXIDE LEVEL 28 MMOL/L (20-31); CHLORIDE LEVEL 105 MMOL/L (98-107); CHOLESTEROL LEVEL 240 MG/DL (<200); CHOLESTEROL RISK RATIO 5.68 (<5); CREATININE FOR GFR 1.01 MG/DL (0.70-1.30); GLOMERULAR FILTRATION RATE > 60.0 (>60); GLUCOSE, FASTING 90 MG/DL (60-100); HDL CHOLESTEROL 42.2 MG/DL (>40); LDL CHOLESTEROL 185.2 MG/DL (<100); NON-HDL-C 197.8 MG/DL; POTASSIUM SERUM 4.3 MMOL/L (3.5-5.1); SODIUM LEVEL 138 MMOL/L (136-145); TOTAL PROTEIN 7.5 G/DL (5.7-8.2); TRIGLYCERIDES LEVEL 63 MG/DL (<150)
== END ==
LOC: M SFHCCLAY 08:57
PROVIDERS: ATTEND Nurse Practitioner Family
DX: E78.2 Mixed hyperlipidemia (principal); R19.7 Diarrhea, unspecified; Z71.41 Alcohol abuse counseling and surveillance of alcoholic

== ENCOUNTER → 2022-10-31 | Outpatient (REF) | payer OTHER | LOC: M LAB REF 10-30 11:17 | PROVIDERS: ATTEND Internal Medicine Gastroenterology | DX: R19.7 Diarrhea, unspecified (principal) ==

== ENCOUNTER 2022-11-03 07:45 | Day surgery (SDC) | payer OTHER ==
[~2022-11-03] VITALS: Ht 180.3 cm; Wt 95.7 kg
[~2022-11-03 07:45] MED LIST changes: +NS 1,000 ML IV ONE
[2022-11-03] MEDS ORDERED: LIDOCAINE 2% 100MG/5ML SDV (FOR ANES.) As Ordered ONE (09:22)
[2022-11-03] MEDS ORDERED: propofoL 200 MG/20 ML VIAL As Ordered ONE (09:22)
[2022-11-03 09:35] VITALS: BP 129/88
== END 2022-11-03 09:48 | disposition home or self-care (01) ==
LOC: M OPP 07:45
PROVIDERS: ATTEND Internal Medicine Gastroenterology
DX: K63.89 Other specified diseases of intestine (principal); K64.8 Other hemorrhoids

== ENCOUNTER → 2023-12-14 | Outpatient (CLI) | payer OTHER ==
[~2023-12-14] MED LIST changes: -NS 1,000 ML IV ONE; +ONDA-282 PO; -ONDA4TAB6 PO
== END ==
LOC: M SOG 09:33
PROVIDERS: ATTEND Orthopaedic Surgery Hand Surgery
DX: S60.351A Superficial foreign body of right thumb, initial encounter (principal)

== ENCOUNTER 2024-01-07 05:59 | Day surgery (SDC) | payer OTHER ==
[~2024-01-07] VITALS: Ht 180.3 cm; Wt 103.1 kg
[~2024-01-07 05:59] MED LIST changes: +THERTAB52 PO
[2024-01-07] MEDS ORDERED: LR 1,000 ML IV SCH ×2 (06:15→09:00)
[2024-01-07] MEDS ORDERED: MIDAZOLAM INJ 2MG/2ML VIAL As Ordered ONE (06:57)
[2024-01-07] MEDS ORDERED: fentaNYL 100 MCG/2 ML INJECTION As Ordered ONE (06:57)
[2024-01-07] MEDS ORDERED: LIDOCAINE 2% 100MG/5ML SDV (FOR ANES.) As Ordered ONE (06:58)
[2024-01-07] MEDS ORDERED: propofoL 200 MG/20 ML VIAL As Ordered ONE (06:58)
[2024-01-07] MEDS ORDERED: ACETAMINOPHEN 1000MG 100ML IV BAG As Ordered ONE (07:56)
[2024-01-07] MEDS: ceFAZolin 2 GM/D5W 50 ML IV BAG As Ordered ONE (07:56)
[2024-01-07] MEDS ORDERED: ONDANSETRON 4MG 2ML VIAL As Ordered ONE (07:56)
[2024-01-07] MEDS: POLYSPORIN OPHTH OINT 3.5 GM As Ordered ONE (08:25)
[2024-01-07] MEDS: BACITRACIN OINTMENT 30GM TUBE As Ordered ONE (08:26)
[2024-01-07] MEDS ORDERED: PERC5TAB12 PO (08:39)
[2024-01-07] MEDS ORDERED: HYDROMORPHONE HCL 0.5 MG/ 0.5 ML SYRINGE IV PRN (09:00)
[2024-01-07] MEDS ORDERED: ONDANSETRON 4MG 2ML VIAL IV PRN (09:00)
[2024-01-07] MEDS ORDERED: fentaNYL 100 MCG/2 ML INJECTION IV PRN (09:00)
[2024-01-07] MEDS: oxyCODONE 5MG TAB PO PRN (09:10)
[2024-01-07 09:52] VITALS: BP 141/96; TEMP 96.7; O2SAT 99
== END 2024-01-07 10:14 | disposition home or self-care (01) ==
LOC: M SDC 05:59
PROVIDERS: ATTEND Orthopaedic Surgery Hand Surgery
DX: S60.351A Superficial foreign body of right thumb, initial encounter (principal); X58.XXXA Exposure to other specified factors, initial encounter; Y92.9 Unspecified place or not applicable; Y93.9 Activity, unspecified; Y99.9 Unspecified external cause status; Z87.891 Personal history of nicotine dependence
CPT/HCPCS: 20520; 88304; J0131; J0665; J0690; J1100; J2250; J2405; J3010

== ENCOUNTER → 2024-04-15 | Outpatient (REF) | payer OTHER ==
[~2024-04-15] MED LIST changes: +PERC5TAB12 PO
[2024-04-15 12:16] LABS: ALBUMIN 4.4 G/DL (3.2-5.2); ALKALINE PHOSPHATASE 74 U/L (40-129); ALT/SGPT 47 U/L (7.0-40); AST/SGOT 12 U/L (<34); BILIRUBIN,TOTAL 0.6 MG/DL (0.3-1.2); BLOOD UREA NITROGEN 19 MG/DL (9-23); CALCIUM LEVEL 10.3 MG/DL (8.5-10.1); CARBON DIOXIDE LEVEL 29 MMOL/L (20-31); CHLORIDE LEVEL 105 MMOL/L (98-107); CHOLESTEROL LEVEL 271 MG/DL (<200); CHOLESTEROL RISK RATIO 6.84 (<5); CREATININE FOR GFR 1.05 MG/DL (0.70-1.30); GLOMERULAR FILTRATION RATE > 60.0 (>60); GLUCOSE, FASTING 94 MG/DL (60-100); HDL CHOLESTEROL 39.6 MG/DL (>40); LDL CHOLESTEROL 207.4 MG/DL (<100); NON-HDL-C 231.4 MG/DL; POTASSIUM SERUM 4.6 MMOL/L (3.5-5.1); SODIUM LEVEL 141 MMOL/L (136-145); TOTAL PROTEIN 7.6 G/DL (5.7-8.2); TRIGLYCERIDES LEVEL 120 MG/DL (<150)
== END ==
LOC: M SFHCCLAY 08:38
PROVIDERS: ATTEND Nurse Practitioner Family
DX: E78.5 Hyperlipidemia, unspecified (principal)

== ENCOUNTER → 2025-04-16 | Outpatient (REF) | payer OTHER ==
[2025-04-16 18:34] LABS: ALT/SGPT 42 U/L (7.0-40); AST/SGOT 23 U/L (<34); CALCIUM LEVEL 10.0 MG/DL (8.5-10.1); CARBON DIOXIDE LEVEL 29 MMOL/L (20-31); CHLORIDE LEVEL 106 MMOL/L (98-107); CHOLESTEROL LEVEL 303 MG/DL (<200); CHOLESTEROL RISK RATIO 7.78 (<5); CREATININE FOR GFR 0.98 MG/DL (0.70-1.30); GLOMERULAR FILTRATION RATE > 90.0 (>60); LDL CHOLESTEROL 244.5 MG/DL (<100); NON-HDL-C 264.1 MG/DL; POTASSIUM SERUM 4.9 MMOL/L (3.5-5.1); SODIUM LEVEL 144 MMOL/L (136-145); TRIGLYCERIDES LEVEL 98 MG/DL (<150)
[2025-04-16 19:27] LABS: ESTIMATED AVERAGE GLUCOSE 103.0 MG/DL (60-110)
== END ==
LOC: M SFHCCLAY 08:55
PROVIDERS: ATTEND Nurse Practitioner Family
DX: Z00.00 Encounter for general adult medical examination without abnormal findings (principal); R19.4 Change in bowel habit

== ENCOUNTER → 2025-04-21 | Outpatient (REF) | payer OTHER | LOC: M SFHCCLAY 13:18 | PROVIDERS: ATTEND Nurse Practitioner Family | DX: R19.4 Change in bowel habit (principal) ==